=== PATIENT | male | born 1985 | race Caucasian/White ===

== ENCOUNTER 2023-03-15 10:40 | Outpatient (AMB) | payer OTHER, SELFPAY ==
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
[2023-03-15 11:04] VITALS: BP 120/70; PULSE 82; O2SAT 96; BMI 28.5
== END 2023-03-15 12:06 | disposition home or self-care (01) ==
PROVIDERS: PCP Nurse Practitioner Family; Visit Provider Nurse Practitioner Family
DX: N50.82 Scrotal pain (principal); F41.9 Anxiety disorder, unspecified; F10.24 Alcohol dependence with alcohol-induced mood disorder; N50.89 Other specified disorders of the male genital organs; N39.43 Post-void dribbling
CPT/HCPCS: 99205

== ENCOUNTER 2023-03-15 12:09 | Outpatient (REF) | payer OTHER, SELFPAY ==
[2023-03-19 20:29] LABS: PSA, Ultra Sensitive 0.84 ng/mL
== END 2023-03-15 12:10 | disposition home or self-care (01) ==
LOC: HO.WFDLDS 12:09
PROVIDERS: Visit Provider Nurse Practitioner Family
DX: Z12.5 Encounter for screening for malignant neoplasm of prostate (principal); N39.43 Post-void dribbling
CPT/HCPCS: 36415; 84153

== ENCOUNTER 2023-03-20 13:52 | Outpatient (REF) | payer OTHER, SELFPAY ==
--- NOTE | ~2023-03-20 | US_ITS ---
EXAMINATION: US SCROTUM CLINICAL INFORMATION: Scrotal pain. COMPARISON: None available. TECHNIQUE: A sonogram of the scrotum was performed assessing emmanuel-scale appearance and color Doppler flow. Spectral Doppler analysis of the arterial and venous flow were performed in the testes bilaterally. FINDINGS: RIGHT: Right testicle measures 4.1 x 2.2 x 3.1 cm, volume 14.3 mL. No focal testicular parenchymal lesions are visualized. Spectral Doppler analysis of the arterial and venous flow is normal in the right testis. Right epididymal head is normal in size. Right epididymal head cyst cysts are seen, the largest measures 0.6 x 0.5 x 0.5 cm No right hydrocele or varicocele is seen. Right epididymal Doppler flow is slightly increased. LEFT: Left testicle measures 4.1 x 2.2 x 2.8 cm, volume 13.1 mL. No focal testicular parenchymal lesions are visualized. Spectral Doppler analysis of the arterial and venous flow is normal in the left testis. Left epididymal head is normal in size. No left hydrocele or varicocele is seen. Left epididymal Doppler flow is normal. US/US scrotum IMPRESSION: 1. Normal testicles. 2. Slight increased vascularity of the right epididymis raises the possibility of epididymitis. Clinical correlation is suggested.
== END 2023-03-20 13:53 | disposition home or self-care (01) ==
LOC: HO.US 13:52
PROVIDERS: PCP Nurse Practitioner Family; Visit Provider Nurse Practitioner Family
DX: N50.82 Scrotal pain (principal); N50.89 Other specified disorders of the male genital organs
CPT/HCPCS: 76870

== ENCOUNTER 2023-04-02 12:27 | Outpatient (REF) | payer OTHER, SELFPAY ==
[2023-04-02 15:12] LABS: Appearance Urine Turbid; Color Urine Yellow; Glucose Urine UA Negative (Negative); Leukocyte Esterase Urine Negative (Negative); Nitrite Urine Negative (Negative); PH 6.5 (5.0-9.0); Specific Gravity - Urine 1.025 (1.005-1.025); Urine Blood Negative (Negative); Urine Ketones Negative (Negative); Urine Protein Trace mg/dL (Neg-Trace)
[2023-04-02 16:57] LABS: CT PCR NOT DETECTED (Not Detect.); NG PCR NOT DETECTED (Not Detect.)
== END 2023-04-02 12:28 | disposition home or self-care (01) ==
LOC: HO.WFDLDS 12:27
PROVIDERS: Visit Provider Nurse Practitioner Family
DX: N45.1 Epididymitis (principal); N50.3 Cyst of epididymis; Z11.3 Encounter for screening for infections with a predominantly sexual mode of transmission
CPT/HCPCS: 0353U; 81003

== ENCOUNTER 2024-06-19 10:16 | Outpatient (AMB) | payer OTHER, SELFPAY ==
--- NOTE | 2024-06-19 10:31 | A.OFFPC_ITS ---
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 Patient reports concern of increased heart rate up to 140 after standing up from sitting or lying position recorded on his Fit BIT for the last year. Patient denies any symptoms of palpitations lightheadedness nausea vomiting dizziness. Patient used to run regularly up to 2 years ago when he has been taking care of his 4-year-old son. He exercises up to twice a week weight lifting and doing cardio without symptoms of chest pain shortness or breath palpitations. [facility] Medical History (Updated 06/19/24 @ 15:55 by Didi Rojas MD) Annual physical exam Tachycardia Urinary dribbling Surgical History History of plastic surgery History of wisdom tooth extraction Family History Father No problems noted. Mother No problems noted. Other Mental health disorder Social History (Updated 06/19/24 @ 11:25 by Didi Rojas MD) Household Members Other:: lives with cynthia, 4 yo son, works [employer] Housing: House Alcohol intake: current Alcohol intake frequency: a few times a month Patient Tobacco Use Status: Current everyday Tobacco user e-Cigarette/Vaping Use: Currently Using Second Hand Smoke Exposure: No service: No Current occupational status: unemployed Cognitive needs: No Hearing needs: No Vision needs: No Questionnaire PHQ-9 Over the last 2 weeks, how often have you been bothered by any of the following problems? 1. Little interest or pleasure in doing things: not at all 2. Feeling down, depressed, or hopeless: not at all 3. Trouble falling or staying asleep, or sleeping too much: not at all 4. Feeling tired or having little energy: not at all 5. Poor appetite or overeating: not at all 6. Feeling bad about yourself - or that you are a failure or have let yourself or your family down: not at all 7. Trouble concentrating on things, such as reading the newspaper or watching television: not at all 8. Moving or speaking so slowly that other people could have noticed. Or the opposite - being so fidgety or restless that you have been moving around a lot more than usual: not at all 9. Thoughts that you would be better off or of hurting yourself in some way: not at all Total score: 0 Depression Screening Interpretation: Negative Depression Screening Done: Yes 77710 - PHQ-9 Billing: Yes Source: Developed by Drs. Jairo Hull, Celeste Elise, Dinesh Gama and colleagues, with an educational david from [employer]. Thrive Questionnaire Date Thrive assessed: 06/19/24 I am a: Patient What is your living situation today?: I have a steady place to live Within the past 12 months, did the food you bought not last and you didn't have the money to get more?: Never true Within the past 12 months, did you worry whether your food would run out before you got money to buy more?: Never true Do you have trouble paying for medicines?: No Do you have trouble getting transportation to medical appointments?: No Do you have trouble paying your heating and electricity bill?: No Do you have trouble taking care of your child, family member or friend?: No Do you have trouble with day-to-day activities such as bathing, preparing meals, shopping, managing finances, etc.?: No Are you currently unemployed and looking for a job?: Yes Are you interested in more education?: Yes Please select the resources that you would like help with: None Currently or been in a relationship where the following occur: No concerns reported THRIVE Score: 0 AUDIT C Alcohol Use Questionnaire (AUDIT-C) 1. How often do you have a drink containing alcohol?: Never 3. How often do you have six or more drinks on one occasion?: Never Total Score: 0 SHEYLA-7 AMB Questionnaire SHEYLA-7 Date SHEYLA - 7 assessed: 06/19/24 Feeling nervous, anxious, or on edge: 0 = Not at all Not being able to stop or control worryin = Not at all Worrying too much about different things: 0 = Not at all Trouble relaxin = Not at all Being so restless that it is hard to sit still: 0 = Not at all Becoming easily annoyed or irritable: 0 = Not at all Feeling afraid as if something awful might happen: 0 = Not at all Total SHEYLA-7 score (0-4 normal; 5-9 mild; 10-14 moderate; 15-21 severe): 0 Source: Developed by Drs. Jairo Hull, Celeste Elise, Dinesh Gama and colleagues, with an educational david from [employer]. SHEYLA-7 Assessment Billing SHEYLA-7 Assessment Tool: SHEYLA-7 Assessment 37461 Review of Systems Const All systems reviewed & are unremarkable except as noted in HPI and below Reports no additional complaints Eyes Reports no additional complaints ENT Reports no additional complaints Card Reports no additional complaints Resp Reports no additional complaints GI Reports no additional complaints Reports no additional complaints Physical exam (Primary Care) Vital Signs: Last Vital Signs Temp 98.6 F 06/19/24 10:33 Pulse 67 06/19/24 10:33 Resp 18 06/19/24 10:33 BP 118/76 06/19/24 10:33 Pulse Ox 97 06/19/24 10:33 Oxygen Delivery Method Room Air 06/19/24 10:33 BMI result Body Mass Index 29.1 Tobacco/Smoking Status: Tobacco use Status Tobacco use date assessed 06/19/24 06/19/24 10:57 Patient Tobacco Use Status Current everyday Tobacco 06/19/24 11:25 e-Cigarette/Vaping Use Currently Using 06/19/24 11:25 PHQ-9: PHQ-9 Score PHQ-9: Total score 0 06/19/24 11:20 Depression Screening Interpretation: Negative Thrive Assessment: Date of Thrive Assessment Date Thrive assessed 06/19/24 06/19/24 10:57 Currently or been in a relationship where the following occur: No concerns reported Const General: no acute distress HENMT Head: Yes normal to inspection Ears: hearing grossly normal bilaterally Face and sinus: Yes normal facial exam Mouth: Normal oral and palatal mucosa present Throat: Yes posterior oropharynx normal Eyes General: appearance normal, both eyes and all related structures Neck Neck: Yes no lymphadenopathy and Yes supple Resp Effort & Inspection: normal respiratory effort Auscultation: clear to auscultation bilaterally Cardio Rhythm: regular rhythm Heart sounds: S1 normal heart sound present and S2 normal heart sound present GI Inspection: Yes normal to inspection Palpation (GI): Soft to palpation Percussion: Yes normal to percussion Auscultation: normal bowel sounds Coding Level of Care Code New Pt Prev Care 40-64y(94154) Diagnoses Foot pain, left M79.672 Urinary dribbling N39.43 Annual physical exam Z00.00 Tachycardia R00.0 Additional Codes SHEYLA-7 Assessment Billing - SHEYLA-7 Assessment Tool: SHEYLA-7 Assessment 56335 ([id number]) PHQ-9 - 50808 - PHQ-9 Billing: Yes ([id number]) Assessment & Plan Assessment & Plan (1) Foot pain, left: Comment: Left foot plantar cyst Code(s): M79.672 - Pain in left foot Category: Medical Plan: refer to podiatry (2) Urinary dribbling: Comment: on Tadalafil f/u PVU Code(s): N39.43 - Post-void dribbling Category: Medical Plan: Follow-up with urology (3) Annual physical exam: Code(s): Z00.00 - Encounter for general adult medical examination without abnormal findings Category: Medical Plan: Well-balanced diet regular physical activity discussed with the patient he will return for fasting blood (4) Tachycardia: Code(s): R00.0 - Tachycardia, unspecified Category: Medical Plan: For episodes of tachycardia Holter monitor will be obtained and patient will follow-up Orders: Orders Comprehensive [place]. Panel Fast Today Z00.00 - Encounter for general adult medical examination without abnormal findings Lipid Panel Today Z00.00 - Encounter for general adult medical examination without abnormal findings ECG 3 day holter monitor Today R00.0 - Tachycardia, unspecified Complete Blood Count Auto Diff Today Z00.00 - Encounter for general adult medical examination without abnormal findings TSH reflex Free T4 Today Z00.00 - Encounter for general adult medical examination without abnormal findings UA w Microscopic Today Z00.00 - Encounter for general adult medical examination without abnormal findings Referrals Podiatry Referral M79.609 - Pain in left foot
[2024-06-19 10:33] VITALS: BP 118/76; PULSE 67; RESP 18; TEMP 37; O2SAT 97; BMI 29.1
[2024-06-19 15:54] VITALS: BP 120/75
== END 2024-06-19 11:42 | disposition home or self-care (01) ==
LOC: HO.HMCC 10:17
PROVIDERS: PCP Nurse Practitioner Family; Visit Provider Internal Medicine
DX: M79.672 Pain in left foot (principal); N39.43 Post-void dribbling; Z00.00 Encounter for general adult medical examination without abnormal findings; R00.0 Tachycardia, unspecified

== ENCOUNTER → 2024-06-19 10:16 | Outpatient (BNVA) | payer OTHER, SELFPAY | PROVIDERS: PCP Nurse Practitioner Family; Visit Provider Internal Medicine | DX: Z00.00 Encounter for general adult medical examination without abnormal findings (principal); M79.672 Pain in left foot; N39.43 Post-void dribbling; R00.0 Tachycardia, unspecified | CPT/HCPCS: 96127; 99386 ==

== ENCOUNTER 2024-06-26 12:22 | Outpatient (REF) | payer OTHER, SELFPAY ==
[2024-06-26 16:03] LABS: MANUAL DIFF FLAG NO
[2024-06-26 16:12] LABS: Appearance Urine Clear; Color Urine Yellow; Glucose Urine UA Negative (Negative); Leukocyte Esterase Urine Negative (Negative); Nitrite Urine Negative (Negative); PH 5.5 (5.0-9.0); Specific Gravity - Urine 1.015 (1.005-1.025); Urine Blood Negative (Negative); Urine Ketones Negative (Negative); Urine Protein Negative (Neg-Trace)
[2024-06-26 16:21] LABS: Bacteria Urine None Seen (None Seen); Hyaline Casts Urine 0-2 /LPF (0-2); RBC Urine 0-2 /HPF (0-2); Squamous Epithelial Cell Urine 0-2 /HPF (0-2); WBC Urine 0-5 /HPF (0-5)
[2024-06-26 16:29] LABS: Basophils Absolute Auto 0.1 X10*3/uL (0.0-0.2); Basophils Percent Auto 0.9 % (0-2); Eosinophils Absolute Auto 0.2 X10*3/uL (0.0-0.4); Eosinophils Percent Auto 3.9 % (0-4); Hematocrit 45.8 % (42.0-52.0); Hemoglobin 15.4 g/dl (14.0-18.0); Imm Gran Abs Auto 0.03 X10*3/uL (0.00-0.03); Imm Gran Pct Auto 0.5 % (0.0-0.4); Lymphocytes Absolute Auto 1.9 X10*3/uL (1.2-4.9); Lymphocytes Percent Auto 34.1 % (20-40); Mean Corpuscular HGB Conc 33.6 g/dl (31.0-36.0); Mean Corpuscular Hemoglobin 28.9 pg (27.0-33.0); Mean Corpuscular Volume 86.1 fL (80.0-98.0); Mean Platelet Volume 10.2 fL (9.4-12.4); Monocytes Absolute Auto 0.5 X10*3/uL (0.1-1.2); Monocytes Percent Auto 9.3 % (2-11); Neutrophils Absolute Auto 2.9 x10*3/uL (2.0-8.3); Neutrophils Percent Auto 51.3 % (45-73); Platelet Count 285 X10*3/uL (160-400); Red Blood Count 5.32 X10*6/uL (4.60-5.80); Red Cell Distribution Width 12.4 % (11.0-16.0); White Blood Count 5.6 X10*3/uL (4.8-10.8)
[2024-06-26 16:51] LABS: Cholesterol 171 mg/dL (<200); HDL Cholesterol 55 mg/dL (>40); LDL Cholesterol Calculated 104 mg/dL (<100); Triglycerides 63 mg/dL (<150)
[2024-06-26 16:56] LABS: TSH reflex Free T4 3.06 uIU/mL (0.32-4.0)
== END 2024-06-26 12:23 | disposition home or self-care (01) ==
LOC: HO.HMGCLDS 12:22
PROVIDERS: PCP Internal Medicine; Visit Provider Internal Medicine
DX: Z00.00 Encounter for general adult medical examination without abnormal findings (principal)
CPT/HCPCS: 36415; 80061; 81001; 84443; 85025